=== PATIENT | male | born 1995 | race Caucasian/White ===

== ENCOUNTER → 2021-07-10 | Outpatient (CLI) | payer MEDICARE, MEDICAID ==
[2021-07-10 23:32] LABS: HEPATITIS B SURFACE ANTIBODY <2.0 (())
== END ==
LOC: LAB 10:40
PROVIDERS: Family Medicine
DX: F31.9 Bipolar disorder, unspecified (principal); F19.90 Other psychoactive substance use, unspecified, uncomplicated; F12.10 Cannabis abuse, uncomplicated